=== PATIENT | male | born 2000 ===

== ENCOUNTER 2023-05-05 08:46 | Emergency (ER) | payer OTHER ==
[~2023-05-05] VITALS: Ht 177.8 cm; Wt 78.0 kg
[2023-05-05] MEDS ORDERED: AMITIZA8 MCG (09:10)
[2023-05-05] MEDS ORDERED: LAMICTAL100 MG PO (09:10)
[2023-05-05] MEDS ORDERED: PROAIR RESPICL90 MCG (09:10)
[2023-05-05] MEDS ORDERED: FLONASE16 GM (09:10)
[2023-05-05 10:52] LABS: HEMATOCRIT 44.3 % (39.0-48.0); HEMOGLOBIN 15.4 g/dL (13-16.00); MEAN CELL VOLUME 83.3 fL (80.0-100.00); MEAN CORPUSCULAR HEMOGLOBIN 28.8 pg (27.00-32.0); MEAN CORPUSCULAR HGB CONC 34.6 g/dl (32.0-36.0); PLATELET COUNT 166 K/uL (150-450); RED BLOOD COUNT 5.32 M/uL (4.00-6.00); RED CELL DISTRIBUTION WIDTH 13.3 % (11.5-14.5)
[2023-05-05 11:23] LABS: CALCIUM 9.8 mg/dL (8.5-10.1); CREATININE SERUM 0.98 mg/dL (0.70-1.30); GFR 96.55; POTASSIUM 3.83 mEq/L (3.5-5.1)
== END 2023-05-05 13:10 | disposition home or self-care (01) ==
LOC: ER 08:46
PROVIDERS: General Practice
DX: R05.9 Cough, unspecified (principal); M94.0 Chondrocostal junction syndrome [Tietze]; Z20.822 Contact with and (suspected) exposure to COVID-19; Z91.013 Allergy to seafood

== ENCOUNTER 2023-05-05 13:17 | Outpatient (CLI) | payer OTHER ==
[~2023-05-05 13:17] MED LIST: AMITIZA8 MCG; FLONASE16 GM; LAMICTAL100 MG PO; PROAIR RESPICL90 MCG
== END 2023-05-05 13:23 | disposition home or self-care (01) ==
LOC: SONOGRAMA 13:17
PROVIDERS: ATTEND Internal Medicine Hematology & Oncology
DX: E04.2 Nontoxic multinodular goiter (principal)

== ENCOUNTER → 2023-05-27 09:53 | Outpatient (CLI) | payer OTHER ==
[2023-05-27 11:14] LABS: HEMATOCRIT 42.8 % (39.0-48.0); HEMOGLOBIN 14.6 g/dL (13-16.00); MEAN CELL VOLUME 83.3 fL (80.0-100.00); MEAN CORPUSCULAR HEMOGLOBIN 28.4 pg (27.00-32.0); MEAN CORPUSCULAR HGB CONC 34.1 g/dl (32.0-36.0); PLATELET COUNT 161 K/uL (150-450); RED BLOOD COUNT 5.14 M/uL (4.00-6.00); RED CELL DISTRIBUTION WIDTH 12.8 % (11.5-14.5)
[2023-05-27 11:55] LABS: COL EPI 100 SECONDS (82-175)
[2023-05-27 11:56] LABS: INR 1.02; PARTIAL THROMBOPLASTIN TIME 29.5 SECONDS (22.0-34.0); PROTHROMBIN TIME 10.7 SECONDS (9.0-11.5)
[2023-05-27 12:11] LABS: ALBUMIN 4.4 gm/dL (3.4-5.0); BILIRUBIN TOTAL 0.38 mg/dL (0.3-1.2); CALCIUM 9.6 mg/dL (8.5-10.1); CREATININE SERUM 1.01 mg/dL (0.70-1.30); FERRITIN 114.5 NG/ML (26-388); GFR 93.25; GLOBULINA 3.2 G/DL (2.4-3.5); POTASSIUM 3.79 mEq/L (3.5-5.1); TOTAL PROTEIN 7.6 gm/dL (6.4-8.2); TSH 2.63 uIU/mL (0.358-3.74)
[2023-05-27 15:08] LABS: MANUAL PLATELET COUNT 284
[2023-05-27 15:10] LABS: PLATELET ESTIMATE NORMAL (NORMAL)
== END | disposition home or self-care (01) ==
LOC: LAB 09:53
PROVIDERS: ATTEND Internal Medicine Hematology & Oncology
DX: J45.909 Unspecified asthma, uncomplicated (principal); J31.0 Chronic rhinitis; D50.8 Other iron deficiency anemias; R79.9 Abnormal finding of blood chemistry, unspecified; I10 Essential (primary) hypertension; R74.02 Elevation of levels of lactic acid dehydrogenase [LDH]; K76.89 Other specified diseases of liver; D51.1 Vitamin B12 deficiency anemia due to selective vitamin B12 malabsorption with proteinuria; D51.0 Vitamin B12 deficiency anemia due to intrinsic factor deficiency; E03.8 Other specified hypothyroidism; E06.3 Autoimmune thyroiditis; D68.8 Other specified coagulation defects; D69.1 Qualitative platelet defects; D69.3 Immune thrombocytopenic purpura; J45.998 Other asthma; H02.403 Unspecified ptosis of bilateral eyelids; Z91.013 Allergy to seafood

== ENCOUNTER 2023-10-10 09:50 | Outpatient (CLI) | payer OTHER ==
[2023-10-10 11:04] LABS: HEMOGLOBIN 14.8 g/dL (13-16.00); MEAN CELL VOLUME 82.7 fL (80.0-100.00); MEAN CORPUSCULAR HEMOGLOBIN 28.5 pg (27.00-32.0); MEAN CORPUSCULAR HGB CONC 34.4 g/dl (32.0-36.0); RED CELL DISTRIBUTION WIDTH 12.9 % (11.5-14.5)
[2023-10-10 11:22] LABS: PLATELET COUNT 141 K/uL (150-450)
[2023-10-10 11:35] LABS: ALBUMIN 4.7 gm/dL (3.4-5.0); ALKALINE PHOSPHATASE 84 U/L (50-136); ALT/SGPT 14 U/L (12-78); ANION GAP 7 (10.0-20.0); AST/SGOT 5 U/L (15-37); BILIRUBIN TOTAL 0.57 mg/dL (0.3-1.2); BLOOD UREA NITROGEN 18 mg/dL (7-18); BUN CREA RATIO 17 (7.0-25.0); CARBON DIOXIDE 33 mEq/L (21-32); CHLORIDE 108 mmol/L (98-107); CREATININE SERUM 1.09 mg/dL (0.70-1.30); GFR 84.59; GLOBULINA 3.2 G/DL (2.4-3.5); GLUCOSE FASTING 93 mg/dL (65-100); LDH 129 U/L (87-241); OSMOLALITY SERUM 288 MOSM/KG (275-295); PHOSPHOKINASE CREATININE 66 U/L (39-308); POTASSIUM 4.18 mEq/L (3.5-5.1); SODIUM 144 mmol/L (136-145); T4 FREE 1.02 NG/ML (0.76-1.46); TOTAL PROTEIN 7.9 gm/dL (6.4-8.2)
[2023-10-10 11:41] LABS: PH,URINE 5.5 (5.0-8.0); URINE APPEARANCE Clear; URINE BILIRRUBIN Negative (NEGATIVE); URINE BLOOD Negative; URINE COLOR Dark Yellow; URINE GLUCOSE Negative (NEGATIVE); URINE LEUKOCYTE Negative; URINE NITRATE Negative; URINE PROTEIN Trace (NEGATIVE)
[2023-10-10 11:45] LABS: URINE EPITHELIAL CELLS 1.5 uL (0.0-38.8); URINE RBC 3.5 uL (0.0-20.8)
[2023-10-10 11:46] LABS: C-REACTIVE PROTEIN < 0.29 MG/DL (0.00-0.29)
[2023-10-10 13:01] LABS: MANUAL PLATELET COUNT 304
[2023-10-10 13:03] LABS: PLATELET ESTIMATE NORMAL (NORMAL)
[2023-10-10 14:01] LABS: FOLIC ACID > 20.00 ng/ml (4.78-20); VITAMIN D3 25 HYDROXY 36.36 ng/ml (30-120)
[2023-10-14 13:07] LABS: hgb a 97.5 % (96.4-98.8); hgb a2 2.5 % (1.8-3.2); hgb f 0 % (0.0-2.0); hgb s 0 % (0.0)
[2023-10-15 17:06] LABS: g6pd quant 252 (156-397)
== END 2023-10-10 09:51 | disposition home or self-care (01) ==
LOC: LAB 09:50
PROVIDERS: ATTEND Internal Medicine Hematology & Oncology
DX: D64.9 Anemia, unspecified (principal); N18.9 Chronic kidney disease, unspecified; E78.5 Hyperlipidemia, unspecified; E11.9 Type 2 diabetes mellitus without complications; R73.09 Other abnormal glucose; E03.9 Hypothyroidism, unspecified; Z79.01 Long term (current) use of anticoagulants; I10 Essential (primary) hypertension; E87.5 Hyperkalemia; R07.9 Chest pain, unspecified; G70.2 Congenital and developmental myasthenia